=== PATIENT | female | born 1990 | race Caucasian/White ===

== ENCOUNTER 2018-01-13 08:02 | Emergency (ER) | payer BC ==
--- NOTE | 2018-01-13 08:45 | EDM.PDOC ---
ED HPI GENERAL MEDICAL PROBLEM - General Chief Complaint: Skin Complaint Stated Complaint: POSSIBLE BUG BITE ON NECK Time Seen by Provider: 01/13/18 08:03 - History of Present Illness INITIAL COMMENTS - FREE TEXT/NARRATIVE: HISTORY AND PHYSICAL: History of present illness: The patient is a healthy 27-year-old female who believes she is up-to-date on her tetanus shot as she had a baby 3 years ago and presents with a small bite that she noticed at the left side of her neck about 5 days ago which opened and now there is redness and discomfort extending medially toward the sternum. The patient has had no systemic complaints such as fever chills shortness of breath sore throat nausea or vomiting. The patient says that she thought she was bitten by something and that's how it originally looked and then it blistered up and then the redness started. He was never itchy and she has no other lesions or rashes elsewhere on her body. She denies as she is currently on her menses. Review of systems: As per history of present illness and below otherwise all systems reviewed and negative. Past medical history: As per history of present illness and as reviewed below otherwise noncontributory. Surgical history: As per history of present illness and as reviewed below otherwise noncontributory. Social history: No reported history of drug or alcohol abuse. Family history: As per history of present illness and as reviewed below otherwise noncontributory. Physical exam: General: Well-developed well-nourished female who is nontoxic and speaks clearly and easily in ED. Vital signs are noted by me. HEENT: Atraumatic, normocephalic, negative for conjunctival pallor or scleral icterus, mucous membranes moist, throat clear, neck supple, nontender, trachea midline. Lungs: Clear to auscultation, breath sounds equal bilaterally, chest nontender. There is no wheezing stridor or work of breathing Heart: S1S2, regular rate and rhythm no overt murmurs Abdomen: Deferred Pelvis: Deferred Genitourinary: Deferred. Rectal: Deferred. Extremities: Atraumatic, full range of motion without any defects or deficits. There is no axillary adenopathy Neurovascular unremarkable. Neuro: Awake, alert, oriented. Cranial nerves II through XII unremarkable. Cerebellum unremarkable. Motor and sensory unremarkable throughout. Exam nonfocal. Skin: At the supraclavicular area on the left starting just lateral to the body of the sternocleidomastoid and extending to the sternal notch there is a well- defined pinkish area of erythema measuring 11 cm in length and 2 cm in width. At the lateral aspect of this there is a punctum with a small scab the patient indicates as the area of the initial bite or lesion. There is no gross streaking and there is no supraclavicular lymphadenopathy no cervical adenopathy and no nuchal rigidity. There is no rash or erythema that extends posteriorly on the neck or other any rashes in this region. There is minimal tenderness with palpation. Diagnostics: [] Therapeutics: [] Impression: Insect bite/lesion of neck with localized cellulitis/reaction Definitive disposition and diagnosis as appropriate pending reevaluation and review of above. - Related Data Allergies Allergy/AdvReac Type Severity Reaction Status Date / Time No Known Allergies Allergy Verified 01/13/18 08:37 Home Meds: Home Meds . [No Known Home Meds] 01/13/18 [History] ED ROS GENERAL - Review of Systems Review Of Systems: ROS reveals no pertinent complaints other than HPI. ED EXAM, SKIN/RASH Exam: See Below (See dictation) Course - Vital Signs Last Recorded V/S: Last Vital Signs Temp 36.6 C 01/13/18 08:26 Pulse 97 01/13/18 08:26 Resp 18 01/13/18 08:26 BP 107/68 01/13/18 08:26 Pulse Ox 97 01/13/18 08:26 Departure - Departure Time of Disposition: 08:44 Disposition: Home, Self-Care 01 Condition: Good Clinical Impression: Cellulitis Qualifiers: Site of cellulitis: neck Qualified Code(s): L03.221 - Cellulitis of neck Insect bite Qualifiers: Encounter type: initial encounter Qualified Code(s): W57.XXXA - Bitten or stung by nonvenomous insect and other nonvenomous arthropods, initial encounter - Discharge Information Referrals: PCP,None [Primary Care Provider] - Additional Instructions: The following information is given to patients seen in the emergency department who are being discharged to home. This information is to outline your options for follow-up care. We provide all patients seen in our emergency department with a follow-up referral. The need for follow-up, as well as the timing and circumstances, are variable depending upon the specifics of your emergency department visit. If you don't have a primary care physician on staff, we will provide you with a referral. We always advise you to contact your personal physician following an emergency department visit to inform them of the circumstance of the visit and for follow-up with them and/or the need for any referrals to a consulting specialist. The emergency department will also refer you to a specialist when appropriate. This referral assures that you have the opportunity for followup care with a specialist. All of these measure are taken in an effort to provide you with optimal care, which includes your followup. Under all circumstances we always encourage you to contact your private physician who remains a resource for coordinating your care. When calling for followup care, please make the office aware that this follow-up is from your recent emergency room visit. If for any reason you are refused follow-up, please contact the [facility] emergency department at and ask to speak to the emergency department charge nurse. [facility] Primary care- Internal Medicine and Family [place] [phone] Please fill your prescription and take all medications as directed. Use over-the -counter Benadryl for pain and redness and add [id number] ibuprofen/ Motrin. Please expect the area to slightly increased in size before it begins diminishing in size. Return to ER as needed and as discussed and please schedule a follow-up appointment with your provider at the clinic or one of ours.
== END 2018-01-13 09:00 | disposition home or self-care (01) ==
LOC: MW.ED 08:02
DX: S10.96XA Insect bite of unspecified part of neck, initial encounter (principal); L03.221 Cellulitis of neck; W57.XXXA Bitten or stung by nonvenomous insect and other nonvenomous arthropods, initial encounter
CPT/HCPCS: 99283

== ENCOUNTER 2018-10-16 08:13 | Inpatient (IN) | payer BC ==
[2018-10-16] MEDS ORDERED: Sodium Chloride 0.9% 2.5 ML Syringe FLUSH PRN (08:25)
[2018-10-16] MEDS ORDERED: Lidocaine 1% 50 ML MDV INJECT PRN (08:25)
[2018-10-16] MEDS ORDERED: Misoprostol 200 MCG Tab PO PRN (08:25)
[2018-10-16] MEDS ORDERED: Terbutaline 1 MG/ML SDV SUBCUT PRN (08:25)
[2018-10-16] MEDS ORDERED: Carboprost Tromethamine 250 MCG/1 ML Amp IM PRN (08:25)
[2018-10-16] MEDS ORDERED: Ondansetron 4 MG/2 ML SDV IV PRN (08:25)
[2018-10-16] MEDS ORDERED: Methylergonovine 0.2 MG/1 ML Amp IM PRN (08:25)
[2018-10-16] MEDS ORDERED: Sodium Chloride 0.9% 10 ML Syringe FLUSH PRN (08:25)
[2018-10-16] MEDS ORDERED: Water For Irrigation,Sterile 1,000 ML Container IRR PRN (08:25)
[2018-10-16] MEDS ORDERED: Sodium Chloride 0.9% 10 ML SDV IV PRN (08:25)
[2018-10-16] MEDS ORDERED: Misoprostol 25 MCG (1/4 of 100 MCG) Tab VAG PRN (08:25)
[2018-10-16] MEDS ORDERED: Nalbuphine 10 MG/1 ML Vial IVPUSH PRN (08:25)
[2018-10-16] MEDS ORDERED: Tranexamic Acid 1,000 MG in Sodium Chloride 0.9% 100 ML IV PRN (08:25)
[2018-10-16] MEDS ORDERED: Oxytocin/0.9 % Sodium Chloride 30 UNIT/500 ML BAG IV SCH ×2 (08:30)
[2018-10-16] MEDS ORDERED: Misoprostol 25 MCG (1/4 of 100 MCG) Tab PO PRN (08:30)
--- NOTE | 2018-10-16 09:58 | PCM.LDHP ---
L&D History of Present Illness - General Date of Service: 10/16/18 Admit Problem/Dx: Patient Status Order with Admit Dx/Problem 10/16/18 08:25 Patient Status [ADT] Routine Admission Diagnosis/Problem Admission Diagnosis/Problem 10/16/18 09:38 27yo EDC 10/20/2018 39 3/7wks IOL elective, A-, RI, GBS neg. Proven pelvis 9lb 8oz Source of Information: Patient History Limitations: Reports: No Limitations - History of Present Illness Improves with: Reports: None Worsens with: Reports: None Associated Symptoms: Reports: N - Related Data Allergies/Adverse Reactions: Allergies Allergy/AdvReac Type Severity Reaction Status Date / Time No Known Allergies Allergy Verified 07/19/18 17:30 Home Medications: Home Meds . 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: - Infectious Disease History Infectious Disease History: Reports: Chicken Pox Social & Family History - Family History Family Medical History: Noncontributory - Caffeine Use Caffeine Use: Reports: Coffee H&P Review of Systems - Review of Systems: Review Of Systems: See Below General: Reports: No Symptoms HEENT: Reports: No Symptoms Pulmonary: Reports: No Symptoms Cardiovascular: Reports: No Symptoms Gastrointestinal: Reports: No Symptoms Genitourinary: Reports: No Symptoms Musculoskeletal: Reports: No Symptoms Skin: Reports: No Symptoms Psychiatric: Reports: No Symptoms Neurological: Reports: No Symptoms Hematologic/Lymphatic: Reports: No Symptoms Immunologic: Reports: No Symptoms L&D Exam - Exam Exam: See Below - OB Specific Contraction Intensity: Moderate Movement: Active Heart Tones: Present Heart Rate (FHR) Variability: Moderate (6-25 bmp) Presentation: Vertex - Ingram Score Ingram Score Cervix Position: Midposition Ingram Score Consistency: Soft Ingram Score Effacement: >80% Ingram Score Dilation: 3-4 cm Ingram Score Infant's Station: -2 Ingram Score Total: 9 - Exam General: Alert, Oriented, Cooperative HEENT: Hearing Intact Lungs: Clear to Auscultation, Normal Respiratory Effort Cardiovascular: Regular Rate, Regular Rhythm, Normal S1, Normal S2 GI/Abdominal Exam: Soft, Non-Tender Rectal Exam: Deferred Genitourinary: Normal external exam, Normal bimanual exam, Cervical dilitation Back Exam: Normal Inspection, Full Range of Motion Extremities: Normal Inspection, Normal Range of Motion, Non-Tender, No Pedal Edema, Normal Capillary Refill Skin: Warm, Dry, Intact Neurological: Cranial Nerves Intact, Reflexes Equal Bilateral, Strength Equal Bilateral, Normal Speech, Normal Tone, Sensation Intact Psychiatric: Alert, Normal Affect, Normal Mood - Patient Data Lab Results Last 24 hrs: Laboratory Results - last 24 hr 10/16/18 Range/Units 08:45 WBC 5.12 (4.0-11.0) K/uL RBC 3.41 L (4.30-5.90) M/uL Hgb 10.2 L (12.0-16.0) g/dL Hct 31.1 L (36.0-46.0) % MCV 91.2 (80.0-98.0) fL MCH 29.9 (27.0-32.0) pg MCHC 32.8 (31.0-37.0) g/dL RDW Std Deviation 45.0 (28.0-62.0) fl RDW Coeff of Tangela 14 (11.0-15.0) % Plt Count 217 (150-400) K/uL MPV 10.90 (7.40-12.00) fL Nucleated RBC % 0.0 /100WBC Nucleated RBCs # 0 K/uL Result Diagrams: 10/16/18 08:45 - Problem List (1) Supervision of normal IUP (intrauterine ) in multigravida SNOMED Code(s): 105481361, 822552168, 683352149 ICD Code: Z34.80 - ENCOUNTER FOR SUPRVSN OF NORMAL , UNSP TRIMESTER Status: Acute Priority: High Current Visit: Yes Qualifiers: Trimester: third trimester Qualified Code(s): Z34.83 - Encounter for supervision of other normal , third trimester Problem List Initiated/Reviewed/Updated: Yes Orders Last 24hrs: Active Orders 24 hr Category Date Time Status Patient Status [ADT] Routine ADT 10/16/18 08:25 Active Bedrest Bathroom Privileges [RC] ASDIRECTED Care 10/16/18 08:25 Active Communication Order [RC] ASDIRECTED Care 10/16/18 08:25 Active Communication Order [RC] ASDIRECTED Care 10/16/18 08:25 Active Communication Order [RC] ASDIRECTED Care 10/16/18 08:25 Active Heart Tones [RC] ASDIRECTED Care 10/16/18 08:25 Active Non Stress Test [RC] PER UNIT ROUTINE Care 10/16/18 08:25 Active May Shower [RC] ASDIRECTED Care 10/16/18 08:25 Active Notify Provider [RC] PRN Care 10/16/18 08:25 Active Notify Provider [RC] PRN Care 10/16/18 08:25 Active Notify Provider [RC] PRN Care 10/16/18 08:25 Active Notify Provider [RC] STAT Care 10/16/18 08:25 Active Oxygen Therapy [RC] ASDIRECTED Care 10/16/18 08:25 Active Up ad Nini [RC] ASDIRECTED Care 10/16/18 08:25 Active Vaginal Exam [RC] PRN Care 10/16/18 08:25 Active Vaginal Exam [RC] PRN Care 10/16/18 08:25 Active Vital Signs [RC] PER UNIT ROUTINE Care 10/16/18 08:25 Active Regular Diet [DIET] Diet 10/16/18 Lunch Active TYPE AND SCREEN [BBK] Routine Lab 10/16/18 08:45 Received Carboprost Tromethamine [Hemabate DS] Med 10/16/18 08:25 Active 250 mcg IM ASDIRECTED PRN Lactated Ringers [Ringers, Lactated] 1,000 ml Med 10/16/18 08:30 Active IV ASDIRECTED Lidocaine 1% [Xylocaine 1%] Med 10/16/18 08:25 Active 50 ml INJECT ONETIME PRN Methylergonovine [Methergine] Med 10/16/18 08:25 Active 0.2 mg IM ASDIRECTED PRN Nalbuphine [Nubain] Med 10/16/18 08:25 Active 10 mg IVPUSH Q1H PRN Ondansetron [Zofran] Med 10/16/18 08:25 Active 4 mg IV Q6H PRN Oxytocin/0.9 % Sodium Chloride [Oxytocin 30 Unit/500 ML Med 10/16/18 08:30 Active -NS] 30 unit in 500 ml IV TITRATE Oxytocin/0.9 % Sodium Chloride [Oxytocin 30 Unit/500 ML Med 10/16/18 08:30 Active -NS] 30 unit in 500 ml IV TITRATE Sodium Chloride 0.9% [Normal Saline] Med 10/16/18 08:25 Active 10 ml IV ASDIRECTED PRN Sodium Chloride 0.9% [Saline Flush] Med 10/16/18 08:25 Active 10 ml FLUSH ASDIRECTED PRN Sodium Chloride 0.9% [Saline Flush] Med 10/16/18 08:25 Active 2.5 ml FLUSH ASDIRECTED PRN Terbutaline [Brethine] Med 10/16/18 08:25 Active 0.25 mg SUBCUT ASDIRECTED PRN Tranexamic Acid [Cyklokapron] 1,000 mg Med 10/16/18 08:25 Active Sodium Chloride 0.9% [Normal Saline] 100 ml IV ONETIME Water For Irrigation,Sterile [Sterile Water for Med 10/16/18 08:25 Active Irrigation] 1,000 ml IRR ASDIRECTED PRN miSOPROStol [Cytotec] Med 10/16/18 08:25 Active 200 mcg PO ONETIME PRN miSOPROStol [Cytotec] Med 10/16/18 08:30 Active 25 mcg PO Q4H PRN miSOPROStol [Cytotec] Med 10/16/18 08:25 Active 25 mcg VAG Q4H PRN Scalp Electrode [WOMSER] Per Unit Routine Oth 10/16/18 08:25 Ordered Medication Administration Instruction [OM.PC] Q3H Oth 10/16/18 08:30 Ordered Peripheral IV Insertion Adult [OM.PC] Routine Oth 10/16/18 08:25 Ordered Resuscitation Status Routine Resus Stat 10/16/18 08:25 Ordered Medication Orders Carboprost Tromethamine (Hemabate Ds) 250 mcg IM ASDIRECTED PRN PRN Reason: Post Hemorrhage Lactated Ringer's (Ringers, Lactated) 1,000 mls @ 150 mls/hr IV ASDIRECTED EVAN Oxytocin/Sodium Chloride (Oxytocin 30 Unit/500 Ml-Ns) 30 unit in 500 mls @ 500 mls/hr IV TITRATE EVAN Oxytocin/Sodium Chloride (Oxytocin 30 Unit/500 Ml-Ns) 30 unit in 500 mls @ 2 mls/hr IV TITRATE EVAN; Protocol Tranexamic Acid 1,000 mg/ (Sodium Chloride) 110 mls @ 660 mls/hr IV ONETIME PRN PRN Reason: Bleeding Lidocaine HCl (Xylocaine 1%) 50 ml INJECT ONETIME PRN PRN Reason: Laceration repair Methylergonovine Maleate (Methergine) 0.2 mg IM ASDIRECTED PRN PRN Reason: Post Hemorrhage Misoprostol (Cytotec) 200 mcg PO ONETIME PRN PRN Reason: Post Hemorrhage Misoprostol (Cytotec) 25 mcg VAG Q4H PRN PRN Reason: Cervical Ripening Misoprostol (Cytotec) 25 mcg PO Q4H PRN PRN Reason: Other Nalbuphine HCl (Nubain) 10 mg IVPUSH Q1H PRN PRN Reason: Pain (severe 7-10) Ondansetron HCl (Zofran) 4 mg IV Q6H PRN PRN Reason: Nausea/Vomiting Sodium Chloride (Saline Flush) 10 ml FLUSH ASDIRECTED PRN PRN Reason: Keep Vein Open Sodium Chloride (Saline Flush) 2.5 ml FLUSH ASDIRECTED PRN PRN Reason: Keep Vein Open Sodium Chloride (Normal Saline) 10 ml IV ASDIRECTED PRN PRN Reason: IV Use Sterile Water (Sterile Water For Irrigation) 1,000 ml IRR ASDIRECTED PRN PRN Reason: delivery Terbutaline Sulfate (Brethine) 0.25 mg SUBCUT ASDIRECTED PRN PRN Reason: Tacysystole
[2018-10-16] MEDS: Lactated Ringers 1,000 ML IV SCH ×2 (10:50→12:36)
[2018-10-16] MEDS ORDERED: fentaNYL 100 MCG/2 ML SDV ONE (12:33)
--- NOTE | 2018-10-16 13:45 | PCM.PREANE ---
Preanesthetic Assessment - Anesthesia/Transfusion/Family Hx Anesthesia History: Prior Anesthesia Without Reaction Family History of Anesthesia Reaction: No Transfusion History: No Prior Transfusion(s) Intubation History: Unknown - Review of Systems General: No Symptoms Pulmonary: No Symptoms Cardiovascular: No Symptoms, Other (murmur, denies valvular disease, MET > 4) Gastrointestinal: No Symptoms Neurological: Other (anxiety) Other: Reports: None - Physical Assessment Height: 5 ft 5 in Weight: 64.864 kg ASA Class: 2 Mental Status: Alert & Oriented x3 Airway Class: Mallampati = 1 Dentition: Reports: Normal Dentition ROM/Head Extension: Full Lungs: Clear to Auscultation Cardiovascular: Regular Rate, Regular Rhythm, Murmurs, Other (occasional palpitations) - Lab Values: Laboratory Last Values WBC 5.12 K/uL (4.0-11.0) 10/16/18 08:45 RBC 3.41 M/uL (4.30-5.90) L 10/16/18 08:45 Hgb 10.2 g/dL (12.0-16.0) L 10/16/18 08:45 Hct 31.1 % (36.0-46.0) L 10/16/18 08:45 MCV 91.2 fL (80.0-98.0) 10/16/18 08:45 MCH 29.9 pg (27.0-32.0) 10/16/18 08:45 MCHC 32.8 g/dL (31.0-37.0) 10/16/18 08:45 RDW Std Deviation 45.0 fl (28.0-62.0) 10/16/18 08:45 RDW Coeff of Tangela 14 % (11.0-15.0) 10/16/18 08:45 Plt Count 217 K/uL (150-400) 10/16/18 08:45 MPV 10.90 fL (7.40-12.00) 10/16/18 08:45 Nucleated RBC % 0.0 /100WBC 10/16/18 08:45 Nucleated RBCs # 0 K/uL 10/16/18 08:45 Blood Type A NEGATIVE 10/16/18 08:45 Antibody Screen NEGATIVE 10/16/18 08:45 - Allergies Allergies/Adverse Reactions: Allergies Allergy/AdvReac Type Severity Reaction Status Date / Time No Known Allergies Allergy Verified 07/19/18 17:30 - Blood Blood Available: No Product(s) Available: None - Anesthesia Plan Pre-Op Medication Ordered: None - Acknowledgements Anesthesia Type Planned: Epidural Pt an Appropriate Candidate for the Planned Anesthesia: Yes Alternatives and Risks of Anesthesia Discussed w Pt/Guardian: Yes Pt/Guardian Understands and Agrees with Anesthesia Plan: Yes PreAnesthesia Questionnaire - Past Health History Medical/Surgical History: Denies Medical/Surgical History HEENT History: Reports: None Cardiovascular History: Reports: Arrhythmia, Heart Murmur 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 [No Known Home Meds] 01/13/18 [History] - CURRENT (IN HOUSE) MEDS Current Meds: Current Medications Carboprost Tromethamine (Hemabate Ds) 250 mcg IM ASDIRECTED PRN PRN Reason: Post Hemorrhage Lactated Ringer's (Ringers, Lactated) 1,000 mls @ 150 mls/hr IV ASDIRECTED EVAN Last Infusion: 10/16/18 12:10 Dose: 999 mls/hr Oxytocin/Sodium Chloride (Oxytocin 30 Unit/500 Ml-Ns) 30 unit in 500 mls @ 500 mls/hr IV TITRATE EVAN Oxytocin/Sodium Chloride (Oxytocin 30 Unit/500 Ml-Ns) 30 unit in 500 mls @ 2 mls/hr IV TITRATE EVAN; Protocol Last Titration: 10/16/18 12:01 Dose: 8 munits/min, 8 mls/hr Tranexamic Acid 1,000 mg/ (Sodium Chloride) 110 mls @ 660 mls/hr IV ONETIME PRN PRN Reason: Bleeding Lidocaine HCl (Xylocaine 1%) 50 ml INJECT ONETIME PRN PRN Reason: Laceration repair Methylergonovine Maleate (Methergine) 0.2 mg IM ASDIRECTED PRN PRN Reason: Post Hemorrhage Misoprostol (Cytotec) 200 mcg PO ONETIME PRN PRN Reason: Post Hemorrhage Misoprostol (Cytotec) 25 mcg VAG Q4H PRN PRN Reason: Cervical Ripening Misoprostol (Cytotec) 25 mcg PO Q4H PRN PRN Reason: Other Nalbuphine HCl (Nubain) 10 mg IVPUSH Q1H PRN PRN Reason: Pain (severe 7-10) Ondansetron HCl (Zofran) 4 mg IV Q6H PRN PRN Reason: Nausea/Vomiting Sodium Chloride (Saline Flush) 10 ml FLUSH ASDIRECTED PRN PRN Reason: Keep Vein Open Sodium Chloride (Saline Flush) 2.5 ml FLUSH ASDIRECTED PRN PRN Reason: Keep Vein Open Sodium Chloride (Normal Saline) 10 ml IV ASDIRECTED PRN PRN Reason: IV Use Sterile Water (Sterile Water For Irrigation) 1,000 ml IRR ASDIRECTED PRN PRN Reason: delivery Terbutaline Sulfate (Brethine) 0.25 mg SUBCUT ASDIRECTED PRN PRN Reason: Tacysystole Discontinued Medications Fentanyl (Sublimaze) Confirm Administered Dose 100 mcg .ROUTE .STK-MED ONE Stop: 10/16/18 12:34 Fentanyl/Bupivacaine HCl (Hzyvmbye-Kpwxo-Rm 2 Mcg/Ml-0.125%) Confirm Administered Dose 100 mls @ as directed .ROUTE .STK-MED ONE Stop: 10/16/18 12:34
[2018-10-16] MEDS ORDERED: Ibuprofen 400 MG Tab PO PRN (15:25)
[2018-10-16] MEDS ORDERED: Acetaminophen 500 MG Tab PO PRN (15:25)
[2018-10-16] MEDS ORDERED: Witch Hazel Medicated Pads 40/Jar TOP PRN (15:25)
[2018-10-16] MEDS ORDERED: Lanolin 100% Cream 7 GM Tube TOP PRN (15:25)
[2018-10-16] MEDS ORDERED: Bisacodyl 10 MG Supp RECTAL PRN (15:25)
[2018-10-16] MEDS ORDERED: oxyCODONE 5 MG Tab PO PRN (15:25)
[2018-10-16] MEDS ORDERED: Docusate Sodium 100 MG Cap PO PRN (15:25)
[2018-10-16] MEDS ORDERED: Benzocaine/Menthol 20%-0.5% Spray 78 GM Cannister TOP PRN (15:25)
--- NOTE | 2018-10-16 15:35 | PCM.DEL ---
L & D Note - General Info Date of Service: 10/16/18 Mother's Due Date: 10/20/18 - Delivery Note Labor: Augmented by Oxytocin, Induced by ARM Delivery Outcome: Livebirth Delivery Method: Spontaneous Vaginal Delivery-Single Presentation: Vertex Nuchal Cord: None Anesthesia Type: Epidural Amniotic Fluid Description: Clear Episiotomy Type: None Laceration: 1st Degree (repaired) Suture type: Vicryl Suture size: 3-0 Placenta: Intact, Spontaneous Cord: 3 Vessels Estimated Blood Loss: 200 Resuscitation Needed: No : Stimulated Score 1 min: 9 Score 5 min: 9 Second Stage Interventions: Reports: Pushing Effectively, Pushing, Pulls Own Legs Back Delivery Comments (Free Text/Narrative):: viable female, head delivered with good pushing, shoulders and body followed easily after, baby to mom's abdomen, RN at bedside for evaluation, APGARs 9/9, delayed cord clamping, pitocin to IVF, cord doubly clamped and cut by FOB, placenta delivered grossly intact, 3VC, 1st degree perineal laceration repaired with 3-0 vicryl, hemostatic, EBL 200 mL, mom and baby left in stable condition, bonding well with nurse at bedside Induction Criteria - Ingram Score Ingram Score Dilation: 3-4 cm Ingram Score Effacement: 60-70% Ingram Score 's Station: -2 Ingram Score Consistency: Soft Ingram Score Cervix Position: Posterior Ingram Score Total: 7 Ingram Score Presenting Part: Reports: Cephalic - Induction Gestational Age >/= 39 wks: Yes Estimated Pelvis: Reports: Adequate Reassuring Monitoring Strip: Yes Absence of Tachy Systole: Yes - General Info Date of Service: 10/16/18 Admission Dx/Problem (Free Text): Patient Status Order with Admit Dx/Problem 10/16/18 08:25 Patient Status [ADT] Routine Admission Diagnosis/Problem Admission Diagnosis/Problem 10/16/18 09:38 27yo EDC 10/20/2018 39 3/7wks IOL elective, A-, RI, GBS neg. Proven pelvis 9lb 8oz Functional Status: Reports: Pain Controlled - Review of Systems General: Reports: No Symptoms HEENT: Reports: No Symptoms Pulmonary: Reports: No Symptoms Cardiovascular: Reports: No Symptoms Gastrointestinal: Reports: No Symptoms Genitourinary: Reports: No Symptoms Musculoskeletal: Reports: No Symptoms Skin: Reports: No Symptoms Neurological: Reports: No Symptoms Psychiatric: Reports: No Symptoms - Patient Data Weight - Most Recent: 64.864 kg Lab Results Last 24 Hours: Laboratory Results - last 24 hr 10/16/18 10/16/18 Range/Units 08:45 08:45 WBC 5.12 (4.0-11.0) K/uL RBC 3.41 L (4.30-5.90) M/uL Hgb 10.2 L (12.0-16.0) g/dL Hct 31.1 L (36.0-46.0) % MCV 91.2 (80.0-98.0) fL MCH 29.9 (27.0-32.0) pg MCHC 32.8 (31.0-37.0) g/dL RDW Std Deviation 45.0 (28.0-62.0) fl RDW Coeff of Tangela 14 (11.0-15.0) % Plt Count 217 (150-400) K/uL MPV 10.90 (7.40-12.00) fL Nucleated RBC % 0.0 /100WBC Nucleated RBCs # 0 K/uL Blood Type A NEGATIVE Antibody Screen NEGATIVE Med Orders - Current: Current Medications Acetaminophen (Tylenol Extra Strength) 500 mg PO Q4H PRN PRN Reason: Pain Acetaminophen (Tylenol Extra Strength) 1,000 mg PO Q4H PRN PRN Reason: Pain Benzocaine/Menthol (Dermoplast Pain Relief 20%-0.5% [place]) 78 gm TOP ASDIRECTED PRN PRN Reason: Perineal Comfort Measure Bisacodyl (Dulcolax) 10 mg RECTAL ONETIME PRN PRN Reason: Constipation Docusate Sodium (Colace) 100 mg PO BID PRN PRN Reason: Constipation Emollient Ointment (Lansinoh Hpa) 0 gm TOP ASDIRECTED PRN PRN Reason: Sore Nipples Ibuprofen (Motrin) 400 mg PO Q4H PRN PRN Reason: Pain Ibuprofen (Motrin) 800 mg PO Q6H PRN PRN Reason: Pain Oxycodone HCl (Oxycodone) 5 mg PO Q2H PRN PRN Reason: Pain Witch Meghann (Tucks) 1 pad TOP ASDIRECTED PRN PRN Reason: comfort care Discontinued Medications Carboprost Tromethamine (Hemabate Ds) 250 mcg IM ASDIRECTED PRN PRN Reason: Post Hemorrhage Fentanyl (Sublimaze) Confirm Administered Dose 100 mcg .ROUTE .[employer] ONE Stop: 10/16/18 12:34 Last Admin: 10/16/18 14:31 Dose: Not Given Lactated Ringer's (Ringers, Lactated) 1,000 mls @ 150 mls/hr IV ASDIRECTED EVAN Last Admin: 10/16/18 12:36 Dose: 150 mls/hr Oxytocin/Sodium Chloride (Oxytocin 30 Unit/500 Ml-Ns) 30 unit in 500 mls @ 500 mls/hr IV TITRATE EVAN Oxytocin/Sodium Chloride (Oxytocin 30 Unit/500 Ml-Ns) 30 unit in 500 mls @ 2 mls/hr IV TITRATE EVAN; Protocol Last Titration: 10/16/18 15:06 Dose: 500 mls/hr Tranexamic Acid 1,000 mg/ (Sodium Chloride) 110 mls @ 660 mls/hr IV ONETIME PRN PRN Reason: Bleeding Fentanyl/Bupivacaine HCl (Vyermcft-Ltmno-Sk 2 Mcg/Ml-0.125%) Confirm Administered Dose 100 mls @ as directed .ROUTE .[employer] ONE Stop: 10/16/18 12:34 Last Admin: 10/16/18 14:30 Dose: Not Given Lidocaine HCl (Xylocaine 1%) 50 ml INJECT ONETIME PRN PRN Reason: Laceration repair Methylergonovine Maleate (Methergine) 0.2 mg IM ASDIRECTED PRN PRN Reason: Post Hemorrhage Misoprostol (Cytotec) 200 mcg PO ONETIME PRN PRN Reason: Post Hemorrhage Misoprostol (Cytotec) 25 mcg VAG Q4H PRN PRN Reason: Cervical Ripening Misoprostol (Cytotec) 25 mcg PO Q4H PRN PRN Reason: Other Nalbuphine HCl (Nubain) 10 mg IVPUSH Q1H PRN PRN Reason: Pain (severe 7-10) Ondansetron HCl (Zofran) 4 mg IV Q6H PRN PRN Reason: Nausea/Vomiting Sodium Chloride (Saline Flush) 10 ml FLUSH ASDIRECTED PRN PRN Reason: Keep Vein Open Sodium Chloride (Saline Flush) 2.5 ml FLUSH ASDIRECTED PRN PRN Reason: Keep Vein Open Sodium Chloride (Normal Saline) 10 ml IV ASDIRECTED PRN PRN Reason: IV Use Sterile Water (Sterile Water For Irrigation) 1,000 ml IRR ASDIRECTED PRN PRN Reason: delivery Terbutaline Sulfate (Brethine) 0.25 mg SUBCUT ASDIRECTED PRN PRN Reason: Tacysystole - Exam General: Alert, Oriented, Cooperative, No Acute Distress Lungs: Normal Respiratory Effort GI/Abdominal Exam: Soft, Non-Tender (Female) Exam: Normal External Exam, Vaginal Bleeding, Vaginal Tears Back Exam: Full Range of Motion Extremities: Normal Range of Motion, No Pedal Edema Skin: Warm, Dry, Intact Wound/Incisions: Healing Well Neurological: No New Focal Deficit, Normal Speech, Normal Tone Psy/Mental Status: Alert, Normal Affect, Normal Mood - Problem List & Annotations (1) (normal spontaneous vaginal delivery) SNOMED Code(s): 77110809 Code(s): O80 - ENCOUNTER FOR FULL-TERM UNCOMPLICATED DELIVERY Status: Acute Priority: High Current Visit: Yes - Problem List Review Problem List Initiated/Reviewed/Updated: Yes - My Orders Last 24 Hours: My Active Orders 10/16/18 15:25 Patient Status [ADT] Routine May Shower [RC] ASDIRECTED Up ad Nini [RC] ASDIRECTED Vital Signs [RC] PER UNIT ROUTINE Acetaminophen [Tylenol Extra Strength] 1,000 mg PO Q4H PRN Acetaminophen [Tylenol Extra Strength] 500 mg PO Q4H PRN Benzocaine/Menthol [Dermoplast Pain Relief 20%-0.5% [place]] 78 gm TOP ASDIRECTED PRN Bisacodyl [Dulcolax] 10 mg RECTAL ONETIME PRN Docusate Sodium [Colace] 100 mg PO BID PRN Ibuprofen [Motrin] 400 mg PO Q4H PRN Ibuprofen [Motrin] 800 mg PO Q6H PRN Lanolin [Lansinoh HPA] See Dose Instructions TOP ASDIRECTED PRN Witch Meghann [Tucks] 1 pad TOP ASDIRECTED PRN oxyCODONE 5 mg PO Q2H PRN Assess Lochia [WOMSER] Per Unit Routine Assess Uterine Involution [WOMSER] Per Unit Routine Peripheral IV Discontinue [OM.PC] Routine Resuscitation Status Routine 10/16/18 Dinner Regular Diet [DIET] - Plan Plan:: A: viable female, APGARs 9/9, wt. 7 lb 15 oz, 1st degree perineal lac with repair, EBL: 200 mL, mother and baby stable in recovery P: Routine care
[2018-10-16] MEDS: Ibuprofen 800 MG Tab PO PRN (22:08)
[2018-10-17] MEDS: Ibuprofen 800 MG Tab PO PRN ×2 (08:08→15:14)
[2018-10-17] MEDS: Acetaminophen 500 MG Tab PO PRN ×3 (08:46→18:30)
--- NOTE | 2018-10-17 11:06 | PCM.DCSUM1 ---
Discharge Summary - Hospital Course Free Text/Narrative:: Discharge home with . Follow up in 6 weeks for . Diagnosis: Stroke: No - Discharge Data Discharge Date: 10/17/18 Discharge Disposition: Home, Self-Care 01 Condition: Good - Discharge Diagnosis/Problem(s) (1) Supervision of normal IUP (intrauterine ) in multigravida SNOMED Code(s): 033367417, 499059635, [id number] ICD Code: Z34.80 - ENCOUNTER FOR SUPRVSN OF NORMAL , UNSP TRIMESTER Status: Acute Priority: High Current Visit: Yes Qualifiers: Trimester: third trimester Qualified Code(s): Z34.83 - Encounter for supervision of other normal , third trimester (2) (normal spontaneous vaginal delivery) SNOMED Code(s): 20570320 ICD Code: O80 - ENCOUNTER FOR FULL-TERM UNCOMPLICATED DELIVERY Status: Acute Priority: High Current Visit: Yes - Patient Instructions Diet: Usual Diet as Tolerated Activity: As Tolerated, No Strenuous Activities, Rest and Relax Today Driving: May Drive Today Showering/Bathing: May Shower Notify Provider of: Fever, Increased Pain, Swelling and Redness, Nausea and/or Vomiting Other/Special Instructions: Discharge home with . Follow up in 6 weeks for . - Discharge Plan *PRESCRIPTION DRUG MONITORING PROGRAM REVIEWED*: Not Applicable *COPY OF PRESCRIPTION DRUG MONITORING REPORT IN PATIENT ERIN: Not Applicable Home Medications: Home Meds . [No Known Home Meds] 01/13/18 [History] Oxygen Therapy Mode: Room Air Referrals: [facility] [Outside] Nydia Diaz CNM [Mid-] - 11/27/18 9:30 am - Discharge Summary/Plan Comment DC Time >30 min.: Yes - General Info Date of Service: 10/17/18 Admission Dx/Problem (Free Text: Patient Status Order with Admit Dx/Problem 10/16/18 08:25 Patient Status [ADT] Routine Admission Diagnosis/Problem Admission Diagnosis/Problem 10/16/18 09:38 27yo EDC 10/20/2018 39 3/7wks IOL elective, A-, RI, GBS neg. Proven pelvis 9lb 8oz Functional Status: Reports: Pain Controlled, Tolerating Diet, Ambulating, Urinating - Review of Systems General: Reports: No Symptoms HEENT: Reports: No Symptoms Pulmonary: Reports: No Symptoms Cardiovascular: Reports: No Symptoms Gastrointestinal: Reports: No Symptoms Genitourinary: Reports: No Symptoms Musculoskeletal: Reports: No Symptoms Skin: Reports: No Symptoms Neurological: Reports: No Symptoms Psychiatric: Reports: No Symptoms - Patient Data Vitals - Most Recent: Last Vital Signs Temp 37.1 C 10/17/18 07:50 Pulse 78 10/17/18 07:50 Resp 16 10/17/18 07:50 BP 117/70 10/17/18 07:50 Pulse Ox 97 10/17/18 07:50 Weight - Most Recent: 64.864 kg I&O - Last 24 hours: Intake & Output 10/16/18 10/17/18 10/17/18 22:59 06:59 14:59 Intake Total 4 Balance 4 Lab Results - Last 24 hrs: Laboratory Results - last 24 hr 10/16/18 Range/Units 16:17 Screen NEG (NEGATIVE) RhIG Candidate? YES Rhogam Indicated YES, BABY RH POS H Med Orders - Current: Current Medications Acetaminophen (Tylenol Extra Strength) 500 mg PO Q4H PRN PRN Reason: Pain Acetaminophen (Tylenol Extra Strength) 1,000 mg PO Q4H PRN PRN Reason: Pain Last Admin: 10/17/18 08:46 Dose: 1,000 mg Benzocaine/Menthol (Dermoplast Pain Relief 20%-0.5% [place]) 78 gm TOP ASDIRECTED PRN PRN Reason: Perineal Comfort Measure Last Admin: 10/16/18 18:42 Dose: 1 can Bisacodyl (Dulcolax) 10 mg RECTAL ONETIME PRN PRN Reason: Constipation Docusate Sodium (Colace) 100 mg PO BID PRN PRN Reason: Constipation Emollient Ointment (Lansinoh Hpa) 0 gm TOP ASDIRECTED PRN PRN Reason: Sore Nipples Last Admin: 10/16/18 21:36 Dose: 1 tube Ibuprofen (Motrin) 400 mg PO Q4H PRN PRN Reason: Pain Ibuprofen (Motrin) 800 mg PO Q6H PRN PRN Reason: Pain Last Admin: 10/17/18 08:08 Dose: 800 mg Oxycodone HCl (Oxycodone) 5 mg PO Q2H PRN PRN Reason: Pain Witch Meghann (Tucks) 1 pad TOP ASDIRECTED PRN PRN Reason: comfort care Discontinued Medications Carboprost Tromethamine (Hemabate Ds) 250 mcg IM ASDIRECTED PRN PRN Reason: Post Hemorrhage Fentanyl (Sublimaze) Confirm Administered Dose 100 mcg .ROUTE .[employer] ONE Stop: 10/16/18 12:34 Last Admin: 10/16/18 14:31 Dose: Not Given Lactated Ringer's (Ringers, Lactated) 1,000 mls @ 150 mls/hr IV ASDIRECTED EVAN Last Admin: 10/16/18 12:36 Dose: 150 mls/hr Oxytocin/Sodium Chloride (Oxytocin 30 Unit/500 Ml-Ns) 30 unit in 500 mls @ 500 mls/hr IV TITRATE EVAN Oxytocin/Sodium Chloride (Oxytocin 30 Unit/500 Ml-Ns) 30 unit in 500 mls @ 2 mls/hr IV TITRATE EVAN; Protocol Last Titration: 10/16/18 15:06 Dose: 500 mls/hr Tranexamic Acid 1,000 mg/ (Sodium Chloride) 110 mls @ 660 mls/hr IV ONETIME PRN PRN Reason: Bleeding Fentanyl/Bupivacaine HCl (Jmbiqbrp-Lgrzn-Tt 2 Mcg/Ml-0.125%) Confirm Administered Dose 100 mls @ as directed .ROUTE .[employer] ONE Stop: 10/16/18 12:34 Last Admin: 10/16/18 14:30 Dose: Not Given Lidocaine HCl (Xylocaine 1%) 50 ml INJECT ONETIME PRN PRN Reason: Laceration repair Methylergonovine Maleate (Methergine) 0.2 mg IM ASDIRECTED PRN PRN Reason: Post Hemorrhage Misoprostol (Cytotec) 200 mcg PO ONETIME PRN PRN Reason: Post Hemorrhage Misoprostol (Cytotec) 25 mcg VAG Q4H PRN PRN Reason: Cervical Ripening Misoprostol (Cytotec) 25 mcg PO Q4H PRN PRN Reason: Other Nalbuphine HCl (Nubain) 10 mg IVPUSH Q1H PRN PRN Reason: Pain (severe 7-10) Ondansetron HCl (Zofran) 4 mg IV Q6H PRN PRN Reason: Nausea/Vomiting Sodium Chloride (Saline Flush) 10 ml FLUSH ASDIRECTED PRN PRN Reason: Keep Vein Open Sodium Chloride (Saline Flush) 2.5 ml FLUSH ASDIRECTED PRN PRN Reason: Keep Vein Open Sodium Chloride (Normal Saline) 10 ml IV ASDIRECTED PRN PRN Reason: IV Use Sterile Water (Sterile Water For Irrigation) 1,000 ml IRR ASDIRECTED PRN PRN Reason: delivery Terbutaline Sulfate (Brethine) 0.25 mg SUBCUT ASDIRECTED PRN PRN Reason: Tacysystole - Exam General: Reports: Alert, Oriented, Cooperative, No Acute Distress Lungs: Reports: Normal Respiratory Effort GI/Abdominal Exam: Soft, Non-Tender (Female) Exam: Deferred, Vaginal Bleeding Rectal (Female) Exam: Deferred Back Exam: Reports: Normal Inspection, Full Range of Motion Extremities: Normal Inspection, Normal Range of Motion, Non-Tender, No Pedal Edema, Normal Capillary Refill Skin: Reports: Warm, Dry, Intact Wound/Incisions: Reports: Healing Well Neurological: Reports: No New Focal Deficit, Normal Speech, Normal Tone Psy/Mental Status: Reports: Alert, Normal Affect, Normal Mood
--- NOTE | 2018-10-17 13:59 | PCM48HPAN ---
Post Anesthesia Note - EVALUATION WITHIN 48HRS OF ANESTHETIC Vital Signs in Normal Range: Yes Patient Participated in Evaluation: Yes Respiratory Function Stable: Yes Airway Patent: Yes Cardiovascular Function Stable: Yes Hydration Status Stable: Yes Pain Control Satisfactory: Yes Nausea and Vomiting Control Satisfactory: Yes Mental Status Recovered: Yes - COMMENTS/OBSERVATIONS Free Text/Narrative:: no complaints
== END 2018-10-17 18:40 | disposition home or self-care (01) | DRG 560 ==
LOC: MW.OB 08:13 → OBSVTOIN 15:25 → MW.OB 18:57
PROVIDERS: ADMIT Obstetrics & Gynecology; ATTEND Obstetrics & Gynecology
PROC: 10907ZC Drainage of Amniotic Fluid, Therapeutic from Products of Conception, Via Natural or Artificial Opening (ICD-10-PCS; principal; 2018-10-16)
PROC: 0HQ9XZZ Repair Perineum Skin, External Approach (ICD-10-PCS; principal; 2018-10-16)
PROC: 10E0XZZ Delivery of Products of Conception, External Approach (ICD-10-PCS; principal; 2018-10-16)
PROC: 3E0R3BZ Introduction of Anesthetic Agent into Spinal Canal, Percutaneous Approach (ICD-10-PCS; 2018-10-16)
PROC: 00HU33Z Insertion of Infusion Device into Spinal Canal, Percutaneous Approach (ICD-10-PCS; 2018-10-16)
PROC: 3E0234Z Introduction of Serum, Toxoid and Vaccine into Muscle, Percutaneous Approach (ICD-10-PCS; 2018-10-16)
DX: O99.344 Other mental disorders complicating childbirth (principal); Z3A.39 39 weeks gestation of pregnancy; F32.9 Major depressive disorder, single episode, unspecified; O70.0 First degree perineal laceration during delivery; Z37.0 Single live birth; O26.893 Other specified pregnancy related conditions, third trimester; Z67.11 Type A blood, Rh negative
CPT/HCPCS: 36430; 51702; 59025; 59409; 85027; 85460; 86850; 86900; 86901; A9270-GY; J2590; J2792; J3010; J7120